=== PATIENT | male | born 1970 | race Caucasian/White ===

== ENCOUNTER → 2018-11-06 | Outpatient (CLI) | payer BC ==
--- NOTE | 2018-11-06 16:33 | Diagnostic Imaging Report ---
INDICATION: Right flank pain. TECHNIQUE: Supine and upright abdominal images were obtained. FINDINGS: The lung bases are clear. The bowel gas pattern is normal. There are no pathologic masses or calcifications seen. IMPRESSION: Negative abdomen. Dictated by: Dictated on workstation # [id number]
== END ==
LOC: RAD FS 16:15
PROVIDERS: ATTEND Family Medicine
DX: R10.9 Unspecified abdominal pain (principal)
CPT/HCPCS: 74019

== ENCOUNTER → 2018-11-24 | Outpatient (CLI) | payer BC ==
--- NOTE | 2018-11-24 11:10 | Diagnostic Imaging Report ---
PROCEDURE: CT abdomen and pelvis without contrast. TECHNIQUE: Multiple contiguous axial images were obtained through the abdomen and pelvis without the use of intravenous contrast. Auto Exposure Controls were utilized during the CT exam to meet ALARA standards for radiation dose reduction. INDICATION: Right sided flank pain radiating to the right lower quadrant. COMPARISON: No prior studies are available for comparison. FINDINGS: Lung bases are clear. Liver and gallbladder are unremarkable. No biliary duct dilatation is seen. The pancreas and spleen are unremarkable. No adrenal mass is detected. No definite renal calculi or evidence of hydronephrosis is identified. Aorta is nonaneurysmal. Bowel loops are normal in caliber. No obstruction is seen. Appendix is visualized in the right lower quadrant and appears unremarkable. There is diverticulosis of the sigmoid colon and the descending colon but no evidence of acute diverticulitis. There is no ascites. Bladder is unremarkable. Prostate is unremarkable. There appear to be fat containing inguinal hernias bilaterally. Bony structures are nonacute. IMPRESSION: 1. Diverticulosis without evidence of acute diverticulitis. 2. No evidence of urinary tract calculi or obstruction. 3. No CT evidence of acute appendicitis. Dictated by: Dictated on workstation # [id number]
== END ==
LOC: RAD FS 10:40
PROVIDERS: ATTEND Family Medicine
DX: K57.30 Diverticulosis of large intestine without perforation or abscess without bleeding (principal)
CPT/HCPCS: 74176

== ENCOUNTER → 2022-11-04 | Outpatient (CLI) | payer BC ==
[~2022-11-04] MED LIST: CATHETER FLUSH 10 ML SYR IV PRN; HOLD METFORMIN - RECEIVED CONTRAST 20 ML VIAL IV SCH; IOHEXOL 350 MG/ML 100 ML (OMNIPAQUE 350) VIAL IV ONE; NS 100 ML (IVPB) BAG IV ONE
[2022-11-04 08:34] LABS: CREATININE SERUM 0.96 MG/DL (0.60-1.30)
--- NOTE | 2022-11-04 12:29 | Diagnostic Imaging Report ---
PROCEDURE: CT abdomen and pelvis with contrast. TECHNIQUE: Multiple contiguous axial images were obtained through the abdomen and pelvis after administration of intravenous contrast. Auto Exposure Controls were utilized during the CT exam to meet ALARA standards for radiation dose reduction. All CT scans use one or more of the following dose optimizing techniques: automated exposure control, MA and/or KvP adjustment based on patient size and exam type or iterative reconstruction. INDICATION: Right lower quadrant abdominal pain. COMPARISON: Comparison is made with prior CT from 11/24/2018. FINDINGS: The lung bases are clear. The liver and gallbladder are unremarkable. There is no biliary ductal dilatation. Pancreas and spleen are unremarkable. No adrenal mass is identified. Kidneys are unremarkable. There is no hydronephrosis. Aorta is nonaneurysmal. The bowel loops are normal in caliber. There is no obstruction. There does appear to be fatty infiltration of the submucosal portion of the colon, perhaps on the basis of chronic colitis. There is diverticulosis involving the descending and sigmoid colon but no definite findings to suggest acute diverticulitis. The appendix is unremarkable. No free fluid or fluid collection is seen. Bladder is decompressed. The prostate is unremarkable. There are fat-containing inguinal hernias bilaterally. Bony structures are nonacute. IMPRESSION: Features suggestive of chronic colitis and uncomplicated diverticulosis. No acute features identified. Dictated by: Dictated on workstation # [id number]
== END ==
LOC: RAD FS 07:35
PROVIDERS: ATTEND Family Medicine
DX: R10.31 Right lower quadrant pain (principal)
CPT/HCPCS: 36415; 74177; 82565; 84520; Q9967